=== PATIENT | male | born 1995 | race Caucasian/White ===

== ENCOUNTER 2016-12-10 05:56 | Emergency (ER) | payer OTHER ==
[~2016-12-10] VITALS: Ht 172.7 cm; Wt 72.6 kg
--- NOTE | 2016-12-10 06:02 | ED PSYCHIATRIC COMPLAINT ---
See Addendum History of Present Illness General Chief Complaint: Psychiatric Related Complaint Stated Complaint: BIBA +SI Source: patient, old records, EMS, police Exam Limitations: no limitations Vital Signs & Intake/Output Vital Signs & Intake/Output Vital Signs Date Time Temp Pulse Resp B/P B/P Pulse O2 O2 Flow FiO2 Mean Ox Delivery Rate 12/10 0852 96.9 80 18 146/79 99 Room Air 12/10 0614 97.7 93 20 156/75 96 Room Air Triage Nurses Notes Reviewed? yes HPI: Patient brought in by EMS on a police paper after making suicidal comments online. Patient states that he feels that he is a burden to everybody and it would just be better if he would just disappear. Patient has thoughts of hanging himself. Patient denies any homicidal ideations. Patient states that he has been having very vivid dreams lately. Patient denies any auditory hallucinations. (HALI RICHARDS,IVÁN García) Past History Travel History Traveled to [place] past 21 day No Medical History Any Pertinent Medical History? none Surgical History Surgical History: none Psychosocial History Tobacco Use: Current Daily Use Daily Tobacco Use Amount/Type: => 5 Cigarettes daily ETOH Use: occasional use Illicit Drug Use: denies illicit drug use Family History Hx Contributory? No (HALI RICHARDS,IVÁN Garcaí) Review of Systems Review of Systems Constitutional: Reports: no symptoms. EENTM: Reports: no symptoms. Respiratory: Reports: no symptoms. Cardiovascular: Reports: no symptoms. GI: Reports: no symptoms. Genitourinary: Reports: no symptoms. Musculoskeletal: Reports: no symptoms. Skin: Reports: no symptoms. Neurological/Psychological: Reports: see HPI, depressed. Hematologic/Endocrine: Reports: no symptoms. Immunologic/Allergic: Reports: no symptoms. All Other Systems: Reviewed and Negative (HALI RICHARDS,IVÁN García) Physical Exam Physical Exam General Appearance: well developed/nourished, mild distress Head: atraumatic, normal appearance Eyes: Bilateral: PERRL, EOMI. Ears, Nose, Throat: normal pharynx, normal ENT inspection, hearing grossly normal Neck: normal inspection, supple Respiratory: normal breath sounds, chest non-tender, no respiratory distress, lungs clear Cardiovascular: regular rate/rhythm, normal peripheral pulses Gastrointestinal: normal bowel sounds, soft, non-tender Extremities: normal range of motion Neurological/Psychiatric: no motor/sensory deficits, awake, alert, calm, oriented x 3 Appearance/Memory/Insight: appropriate appearance, appropriate insight Behavoir/Eye Contact/Speech: cooperative, normal speech, good eye contact Thoughts/Hallucinations: normal thought pattern, no apparent hallucination Skin: intact, normal color, warm/dry SAD PERSONS Done? CRISIS CONSULT OBTAINED (HALI RICHARDS,IVÁN García) Progress Differential Diagnosis: drug intoxication, drug overdose, drug withdrawal, electrolyte abnormality Plan of Care: Orders Procedure Date/time Status Regular Diet 12/10 B Active Continuous Observation Monitor 12/10 601 Active URINE DRUGS OF ABUSE 12/10 601 Complete ETHANOL 12/10 601 Complete COMPREHENSIVE METABOLIC PANEL 12/10 601 Complete CBC WITHOUT DIFFERENTIAL 12/10 601 Complete ED CRISIS PSYCH CONSULT 12/10 601 Active Laboratory Tests 12/10/16 0621: Urine Opiates Screen < 100.00, Methadone Screen < 40, Barbiturate Screen < 60, Ur Phencyclidine Scrn < 6.00, Amphetamines Screen < 100, U Benzodiazepines Scrn < 85, Urine Cocaine Screen < 50, Urine Cannabis Screen < 5.00 12/10/16 0619: Anion Gap 10, Estimated GFR > 60, BUN/Creatinine Ratio 17.8, Glucose 93, Calcium 9.0, Total Bilirubin 0.4, AST 32, ALT 49, Alkaline Phosphatase 82, Total Protein 7.0, Albumin 4.7, Globulin 2.3, Albumin/Globulin Ratio 2.0, CBC w Diff NO MAN DIFF REQ, RBC 5.11, MCV 90.8, MCH 30.7, RDW 12.1, MPV 7.9, Gran % 58.2, Lymphocytes % 30.8, Monocytes % 9.3, Eosinophils % 1.4, Basophils % 0.3, Absolute Granulocytes 6.2, Absolute Lymphocytes 3.3, Absolute Monocytes 1.0 H, Absolute Eosinophils 0.2, Absolute Basophils 0, PUBS MCHC 33.8, Serum Alcohol < 10.0 Hand-Off Endorsed To: ROMARIO NEWSOME DO Endorsed Time: 0700 Pending: consult, labs (HALI RICHARDS,IVÁN García) Departure Departure Disposition: STILL A PATIENT Condition: Stable Clinical Impression Primary Impression: Suicidal ideations Referrals: HARISH RICHARDS,JOELLE Alexandre (PCP/Family) Departure Forms: Customer Survey General Discharge Information (HALI RICHARDS,IVÁN García) Departure Comments 12/10/16 9 AM The patient was signed out to me by Dr. Ortiz. He is pending evaluation by crisis. (MERCEDEZ MENA,ROMARIO Tirado)
[2016-12-10 06:32] LABS: ABSOLUTE BASOPHIL COUNT 0 /CUMM (0.0-0.2); ABSOLUTE EOSINOPHIL COUNT 0.2 /CUMM (0.0-0.7); ABSOLUTE GRANULOCYTE CT 6.2 /CUMM (1.4-6.5); ABSOLUTE LYMPH COUNT 3.3 /CUMM (1.2-3.4); BASOPHIL % 0.3 % (0.0-2.0); EOSINOPHIL % 1.4 % (0-5); GRANULOCYTE % 58.2 % (42.2-75.2); HEMATOCRIT 46.4 % (42-52); MEAN CORPUSCULAR HGB 30.7 PG (27.0-31.0); MEAN CORPUSCULAR HGB CONC 33.8 G/DL (33.0-37.0); MEAN CORPUSCULAR VOLUME 90.8 FL (80.0-94.0); MEAN PLATELET VOLUME 7.9 FL (7.4-10.4); PLATELET COUNT 251 /CUMM (130-400); RBC DISTRIBUTION WIDTH 12.1 % (11.5-14.5); RED BLOOD CELL CT 5.11 /CUMM (4.70-6.10); WHITE BLOOD CELL COUNT 10.6 /CUMM (4.8-10.8)
[2016-12-10 11:53] VITALS: BP 147/64
--- NOTE | 2016-12-10 14:50 | ED PSYCH CRISIS CONSULTATION ---
Crisis Consult Basic Assessment Date of Consult: 12/10/16 Responsible Person/Accompanied By: Self/Parents Demetrio Insurance Authorization: Insurance #1: Insurance name: [id number] Phone number: Policy number: [id number] Group number: Authorization number: ED Provider: Patient's ED Provider: HALI RICHARDS,IVÁN García Primary Care Physician: Patient's PCP: JOELLE MOREIRA MD PCP's Current Psychiatrist: Andie Barajas MD Chief Complaint: Psychiatric Related Complaint Patient's Quote: "I'm anxious a lot lately" Present Illness: Pt is a 21 year old single male BIBA on a PEER. The police report states the pt had sucidal thoughts with a plan to hang himself and he made comments that the wanted to "disappear for good". Upon interviewing the pt he stated he was talking to a friend on [place] and shared with the friend a dream he had recently and in the dream he hung himself. Pt stated "I told her I had a lucid dream that felt real that I had hung myself". The friend then call 911 and the police showed up at the pt's home. Pt states he was not expecting his friend to call the police and so he was very suprised. Pt was alert and oriented. Pt denies having suicidal thoughts and stated "No I do not have intentions to kill myself". Pt denies psychosis and states he has been feeling very anxious lately. "I've been having a lot of anxiety lately". "When I have them I have trouble breathing". Pt reports that the triggers he believes for the anxiety, is his current stressors of not being able to finish High School, not being able to get into a GED class, he cannot get a job without his GED and he has a goal of going to 'hospitality school". Pt states not being able to do my GED is "stressing me out" Pt states he has been having difficulty sleeping and so he stay up all night into the morning talking to friends. When he does get some sleep he often has bad dreams. "however, I barely sleep at night". No prior psychiatric admissions reported, no current medications. Utox negative. Pt stated he used marijuana approximately 1 month ago, and he drank two beers ealier in the day. Pt denies that he uses substances daily. Pt has agreed to [facility] treatment and was given an appointment at [facility] for at 10:15am. Patient's Address: [address] [place] [address] Other Phone Number: Who Do You Live With? Family Family/Informants Interviewed: Face to face with stan idania and emeterio Brennan parents. They shared that the pt's paternal grandmother was clinically depressed and treated with medications. Also, the pt has a paternal nephew who was diagnosed with Bipolar Disorder. Dad said he found beer cans in the pt's car and just feels the pt is on a "path to destruction". They report that a former neighbor, youngman who grew up with the pt just committed suicide by shoting himself. Dad, immediately said he will remove the guns he has in the home. The parents stated the were no incidents or threats of suicide within the past couple of years, however when the pt was in 10th grade, a friend of his sent the parents a note saying "he needs help" parent at the time talked to him about outpatient treatment, the pt only participated in counseling in school. Allergies - Coded Allergies: No Known Allergies (12/10/16) Current Medications - No Known Home Medications Laboratory Results: Laboratory Tests 12/10/16 0621: Urine Opiates Screen < 100.00, Methadone Screen < 40, Barbiturate Screen < 60, Ur Phencyclidine Scrn < 6.00, Amphetamines Screen < 100, U Benzodiazepines Scrn < 85, Urine Cocaine Screen < 50, Urine Cannabis Screen < 5.00 12/10/16 0619: Anion Gap 10, Estimated GFR > 60, BUN/Creatinine Ratio 17.8, Glucose 93, Calcium 9.0, Total Bilirubin 0.4, AST 32, ALT 49, Alkaline Phosphatase 82, Total Protein 7.0, Albumin 4.7, Globulin 2.3, Albumin/Globulin Ratio 2.0, CBC w Diff NO MAN DIFF REQ, RBC 5.11, MCV 90.8, MCH 30.7, RDW 12.1, MPV 7.9, Gran % 58.2, Lymphocytes % 30.8, Monocytes % 9.3, Eosinophils % 1.4, Basophils % 0.3, Absolute Granulocytes 6.2, Absolute Lymphocytes 3.3, Absolute Monocytes 1.0 H, Absolute Eosinophils 0.2, Absolute Basophils 0, PUBS MCHC 33.8, Serum Alcohol < 10.0 Past History Past Surgical History Surgical History: 1 Psychosocial History Strengths/Capabilities: Supportive parent Physical Limitations (Interventions): None reported Psychiatric Treatment History Psych Treatment Psychiatric Treatment No Inpatient Treatment No Outpatient Treatment No Location of Treatment n/a Reason for Treatment n/a Dates of Treatment n/a Response to Treatment n/a Diagnosis by History: None Substance Use/Abuse History Drug Use/Abuse Substances Used/Abused Yes Substance Used/Abused Alcohol First Use Age 20 Last Used 12/09/16 How much used/taken 2 Beers How often Ocassionally For how long Not long Route of use Oral Substance Abuse Treatment Substance Abuse Treatment Past Substance Abuse [place] No Inpatient Treatment No Outpatient Treatment No Location of Treatment n/a Reason for Treatment n/a Dates of Treatment n/a Response to Treatment n/a Current Mental Status Mental Status Orientation: Person, Place, Situation Affect: Anxious, Flat Speech: Soft Neuro-vegetative: Appetite Decreased, Energy Decreased, Sleep Disturbance Appearance Appearance- Dress/Hygiene: Disheveled, Unkempt Behaviors Thought Process: WNL Thought Content: WNL Memory: WNL Insight: Poor SI/HI Risk Assessment Past Suicidal Ideation/Attempts No Current Suicidal Ideation/Att No Past Homicidal Ideation/Att: No Current Homicidal Ideation/Attempts No Degree of Intent: None Danger To: None Gravely Disabled: N/A Risk Factors: age (under 24/over 65), substance abuse, male Lethality Ratin PTSD Checklist PTSD Done? patient declined ED Management Sitter: Yes Restraints: No DSM5/PS Stressors/Medical Prob Diagnosis' (DSM 5, Stressors, Medical): F32.9 Depressive Disorder Unspecified F15.10 Cannabis use disorder, Mild, F10.10 Alcohol Use Disorder Mild F41.1 Anxiety Disorder Z55.9 Academic or Educational problem Current GAF: 30 Departure Disposition Psych Medical Clearance Date: 12/10/16 Medically Cleared at: 0800 Time Started: 1000 Time Ended: 1030 Psychiatrist Consulted: Andie Barajas MD Date Disposition Established: 12/10/16 Time Disposition Established: 1030 Plan for Disposition - Modality: IOP Facility: [facility] Follow-up Appt Date: 12/13/16 Follow-Up Appt Time: 1015 Contact: [facility] Telephone: [phone] Rationale for Disposition: Pt denies SI/HI. Pt report feeling increased anxiety, with multiple stressor currently, no work, no GED, and feeling social anxiety around his friends. Pt reports difficulty sleeping and decrease in appetite and feeling more depressed lately. Pt states he does not want to kill himself, he has a goal of earning his GED and going to hospitality school. Pt does want to treatment for his depression and anxiety. Pt was given and appointment for [facility]. Referrals HARISH RICHARDS,JOELLE Alexandre (PCP/Family)
== END 2016-12-10 12:08 ==
LOC: ERH 05:56
PROVIDERS: Emergency Medicine
DX: R45.851 Suicidal ideations (principal)
CPT/HCPCS: 80307; G0463; G0480